=== PATIENT | male | born 1980 ===

== ENCOUNTER 2017-10-25 12:51 | Emergency (ER) | payer MEDICAID, OTHER ==
[2017-10-25 13:06] VITALS: BP 105/69; PULSE 72; RESP 18; TEMP 98.2; O2SAT 98
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
--- NOTE | 2017-10-25 15:33 | CP.PCM.CON ---
History of Present Illness - History of Present Illness History of Present Illness: PGY-1 general surgery note for Dr Boateng CC: Right inguinal hernia HPI: Patient is a 37 yo male consulted by surgery for bulge in the right inguinal area that started bothering around 1 week ago. Patient states he noticed it first time in 3 weeks. 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 Patient denies fever, chills, nausea, vomiting, or abdominal tenderness. Pmhx: Asthma, seizures, narcotic use, Depression All: NKDA Social hx: Patient admits to smoking cigarettes. Review of Systems - Review of Systems All systems: reviewed and no additional remarkable complaints except Review of Systems: as indicated in HPI Past Patient History - Past Medical History & Family History Past Medical History?: No - Past Social History Smoking Status: Heavy Smoker > 10 Cigarettes Daily - CARDIAC Hx Hypertension: No - PULMONARY Hx Asthma: Yes - NEUROLOGICAL Hx Seizures: Yes (pt states r/t detox /using drugs) - HEENT Hx HEENT Problems: No - RENAL Hx Chronic Kidney Disease: No - ENDOCRINE/METABOLIC Hx Endocrine Disorders: No - HEMATOLOGICAL/ONCOLOGICAL Hx Human Immunodeficiency Virus (HIV): No - INTEGUMENTARY Hx Dermatological Problems: No - MUSCULOSKELETAL/RHEUMATOLOGICAL Hx Fractures: Yes - GASTROINTESTINAL Hx Gastrointestinal Disorders: No - GENITOURINARY/GYNECOLOGICAL Hx Sexually Transmitted Disorders: No - PSYCHIATRIC Hx Anxiety: Yes Hx Depression: Yes Hx Substance Use: Yes - SURGICAL HISTORY Hx Surgeries: Yes Hx Orthopedic Surgery: Yes - ANESTHESIA Hx Anesthesia: Yes Hx Anesthesia Reactions: No Hx Malignant Hyperthermia: No Meds Allergies/Adverse Reactions: Allergies Allergy/AdvReac Type Severity Reaction Status Date / Time No Known Allergies Allergy Verified 10/25/17 13:04 Physical Exam - Constitutional Appears: Non-toxic, No Acute Distress - Head Exam Head Exam: ATRAUMATIC, NORMAL INSPECTION, NORMOCEPHALIC - Eye Exam Eye Exam: EOMI, Normal appearance - ENT Exam ENT Exam: Mucous Membranes Moist - Neck Exam Neck exam: Positive for: Normal Inspection - Respiratory Exam Respiratory Exam: NORMAL BREATHING PATTERN. absent: Accessory Muscle Use, Respiratory Distress - GI/Abdominal Exam GI & Abdominal Exam: Normal Bowel Sounds, Soft Additional comments: right reducible inguinal hernia, nontender to palpation, non incarcerated. - Extremities Exam Extremities exam: Positive for: full ROM, normal inspection - Back Exam Back exam: NORMAL INSPECTION - Neurological Exam Neurological exam: Alert, Oriented x3 - Psychiatric Exam Psychiatric exam: Normal Affect, Normal Mood - Skin Skin Exam: Intact, Normal Color, Warm Results - Vital Signs Recent Vital Signs: Last Vital Signs Temp 98.2 F 10/25/17 13:00 Pulse 72 10/25/17 13:00 Resp 18 10/25/17 13:00 BP 105/69 10/25/17 13:00 Pulse Ox 98 10/25/17 15:24 Assessment & Plan - Assessment and Plan (Free Text) Assessment: 37 yo male with right reducible inguinal hernia Plan: - Patient instructed to follow up with Dr Boateng as needed for discussion on possible inguinal hernia repair - Patient to do reduction technique at home when hernia bulges out -Pain medication as needed - Avoid heavy lifting Plan to be discussed with Dr Tasneem Davalos, PGY-1 - Date & Time Date: 10/25/17 Time: 15:42
== END 2017-10-25 15:08 | disposition home or self-care (01) ==
LOC: C.ER 12:51
DX: K40.90 Unilateral inguinal hernia, without obstruction or gangrene, not specified as recurrent (principal); F19.20 Other psychoactive substance dependence, uncomplicated; F17.210 Nicotine dependence, cigarettes, uncomplicated